=== PATIENT | female | born 1950 | race Caucasian/White ===

== ENCOUNTER → 2021-10-31 | Outpatient (CLI) | payer MEDICARE, BC, OTHER | LOC: M SLEEP HO 09:52 | PROVIDERS: ATTEND Internal Medicine Cardiovascular Disease | DX: R60.0 Localized edema (principal) ==

== ENCOUNTER → 2024-04-30 | Outpatient (CLI) | payer BC, MEDICARE | LOC: M SLEEP HO 10:47 | PROVIDERS: ATTEND Physician Assistant | DX: G47.33 Obstructive sleep apnea (adult) (pediatric) (principal) ==